=== PATIENT | female | born 1980 | race Caucasian/White ===

== ENCOUNTER → 2017-10-16 | Outpatient (CLI) | payer OTHER ==
[~2017-10-16] MED LIST: ASPIRIN325 PO; PERCOCET PO
== END ==
LOC: M.RAD 10-15 15:30
DX: Z12.31 Encounter for screening mammogram for malignant neoplasm of breast (principal)

== ENCOUNTER → 2017-11-03 | Outpatient (CLI) | payer OTHER | LOC: M.ULTRA 09:26 | DX: N60.01 Solitary cyst of right breast (principal); N60.02 Solitary cyst of left breast ==